=== PATIENT | female | born 1960 | race Caucasian/White ===

== ENCOUNTER 2017-04-17 08:26 | Outpatient (CLI) | payer OTHER ==
[2017-04-17 09:11] LABS: BILIRUBIN,URINE NEGATIVE (NEGATIVE)
[2017-04-17 09:12] LABS: BASOPHILS # (AUTO) 0.1 10^3/uL (0.0-0.1); BASOPHILS % (AUTO) 1.1 %; EOSINOPHILS # (AUTO) 0.1 10^3/uL (0.0-0.7); EOSINOPHILS % (AUTO) 2.3 %; HCT - HEMATOCRIT 42.7 % (37.0-47.0); LYMPHOCYTES # (AUTO) 1.8 10^3/uL (1.5-3.5); LYMPHOCYTES % (AUTO) 29.4 %; MEAN CORPUSCULAR HEMOGLOBIN 27.3 pg (27.0-31.0); MEAN CORPUSCULAR HGB CONC 32.9 g/dL (32.0-36.0); MEAN CORPUSCULAR VOLUME 82.9 fL (81.0-99.0); MEAN PLATELET VOLUME 9.1 fL (7.9-10.8); MONOCYTES # (AUTO) 0.4 10^3/uL (0.0-1.0); MONOCYTES % (AUTO) 6.7 %; NEUTROPHILS # (AUTO) 3.6 10^3/uL (1.5-6.6); NEUTROPHILS % (AUTO) 60.5 %; NUCLEATED RED BLOOD CELLS AUTO 0.1 /100WBC; RED BLOOD COUNT 5.15 10^6/uL (4.20-5.40); RED CELL DISTRIBUTION WIDTH 13.5 % (12.0-15.0)
[2017-04-17 09:18] LABS: UA w/ MICROSCOPIC CHARGE YES
[2017-04-17 09:24] LABS: UR CULTURE IF IND INDICATED
[2017-04-17 09:45] LABS: HEMOGLOBIN A1C 1.89 g/dL
[2017-04-17 10:09] LABS: ALBUMIN/GLOBULIN RATIO 1.3 (1.0-2.2); BILIRUBIN,TOTAL 0.9 mg/dL (0.2-1.0); BUN - BLOOD UREA NITROGEN 16 mg/dL (6-20); CARBON DIOXIDE - CO2 27 mmol/L (21-32); CHLORIDE 98 mmol/L (101-111); CHOL/HDL RATIO 7.3 (<4.4); CHOLESTEROL 235 mg/dL; CREATININE 0.8 mg/dL (0.4-1.0); GFR - MDRD 74 (>89); GLUCOSE 276 mg/dL (70-100); HDL CHOLESTEROL 32 mg/dL; POTASSIUM 3.9 mmol/L (3.5-5.0); SODIUM 134 mmol/L (135-145); TOTAL PROTEIN 7.1 g/dL (6.7-8.2); TRIGLYCERIDES 406 mg/dL
[2017-04-17 10:56] LABS: LDL CHOLESTEROL,DIRECT 128 mg/dL
== END 2017-04-17 08:27 | disposition home or self-care (01) ==
LOC: LAB 08:26
PROVIDERS: ATTEND Internal Medicine
DX: Z00.00 Encounter for general adult medical examination without abnormal findings (principal); E11.9 Type 2 diabetes mellitus without complications; E03.9 Hypothyroidism, unspecified; J30.2 Other seasonal allergic rhinitis; Z79.899 Other long term (current) drug therapy
CPT/HCPCS: 36415; 80053; 80061; 81001; 81003; 82043; 82570; 83036; 84443; 85025; 87086

== ENCOUNTER 2017-04-17 12:55 | Outpatient (CLI) | payer OTHER ==
--- NOTE | 2017-04-18 18:03 | Mammography Report ---
DIGITAL BILATERAL SCREENING MAMMOGRAM: 04/17/2017 COMPARISON STUDY: Mammogram 04/13/2016. TECHNIQUE: Routine CC and MLO projections were obtained of the breasts. FINDINGS: Scattered fibroglandular tissue is present within the breasts. There are no dominant mass es, suspicious microcalcifications, or secondary signs of malignancy. In comparison to the previous studies, there are no significant changes. ASSESSMENT: NO MAMMOGRAPHIC EVIDENCE OF MALIGNANCY. NO SIGNIFICANT INTERVAL CHANGES. RECOMMENDATION: Screening mammography is recommended annually. BIRADS category 1 - negative. STANDARD QUALIFYING STATEMENTS 1. This examination was reviewed with the aid of Computed-Aided Detection (CAD). 2. A negative or benign imaging report should not delay biopsy if clinically suspicious findings are present. Consider surgical consultation if warranted. More than 5% of cancers are not identified b y imaging. 3. Dense breasts may obscure an underlying neoplasm. JOB #: [id number] EXT JOB #:[id number]
== END 2017-04-17 12:56 | disposition home or self-care (01) ==
LOC: DI 12:55
PROVIDERS: ATTEND Internal Medicine
DX: Z12.31 Encounter for screening mammogram for malignant neoplasm of breast (principal)
CPT/HCPCS: 77067

== ENCOUNTER 2019-07-02 07:17 | Outpatient (CLI) | payer OTHER ==
--- NOTE | 2019-07-02 15:55 | Ultrasound Report ---
Reason: ELEVATED LFT'S Procedure Date: 07/02/2019 Accession Number: [id number] / [id number] Procedure: US - Abdomen Limited CPT Code: Final Report FULL RESULT: EXAM: ABDOMEN ULTRASOUND LIMITED, RUQ EXAM DATE: 07/02/2019 08:15 AM. CLINICAL HISTORY: ELEVATED LFTS. COMPARISON: None. TECHNIQUE: Real-time scanning was performed with static images obtained. FINDINGS: Liver: Dense echogenic hepatic parenchyma. The entire posterior right lobe of the liver is not optimally detailed. No intrahepatic ductal dilatation. The liver is not enlarged, 15.2 cm. Main portal vein flow: Hepatopetal. Gallbladder: Normal. No stones, wall thickening, or sonographic Johnson's sign. Biliary System: CBD measures 3-4 mm. No intrahepatic or extrahepatic ductal dilatation. Other: Right kidney is in contour and echotexture measures 10.8 cm. Mid right renal 2.4 x 1.7 x 2 cm cyst. No hydronephrosis. IMPRESSION: 1. Hepatic steatosis. No hepatic lesions. 2. Normal gallbladder. No biliary ductal dilatation. 3. Right renal 2.4 cm cyst. [facility]
== END 2019-07-02 07:18 | disposition home or self-care (01) ==
LOC: DI 07:17
PROVIDERS: ATTEND Internal Medicine
DX: K76.0 Fatty (change of) liver, not elsewhere classified (principal); Q61.01 Congenital single renal cyst
CPT/HCPCS: 76705

== ENCOUNTER 2019-07-02 07:18 | Outpatient (CLI) | payer OTHER ==
--- NOTE | 2019-07-02 13:29 | Mammography Report ---
Reason: ROUTINE MAMMO Procedure Date: 07/02/2019 Accession Number: [id number] / [id number] Procedure: [facility] - Screening Mammo w/Dequan CPT Code: Final Report FULL RESULT: EXAM: Screening Mammo w/Dequan DATE: 07/02/2019 8:33 AM CLINICAL HISTORY: The patient is an asymptomatic 59-year-old female. Nulliparous. Family history (mother) breast cancer. TECHNIQUE: (B) - Bilateral CC and MLO views were obtained. COMPARISON: 04/17/2017, 04/13/2016, 04/06/2015 and 04/14/2013 PARENCHYMAL PATTERN: (A) - The breasts demonstrate scattered fibroglandular densities bilaterally. FINDINGS: There are no suspicious masses, calcifications, or areas of distortion. IMPRESSION: Negative examination. BI-RADS category 1. RECOMMENDATION: (ANNUAL) - Recommend routine annual screening mammography. BI-RADS CATEGORY: (1) - Negative. STANDARD QUALIFYING STATEMENTS: A negative or benign imaging report should not preclude biopsy if clinically suspicious findings are present. Dense breasts may obscure an underlying neoplasm. This examination was reviewed with the aid of 3D breast imaging (tomosynthesis).
== END 2019-07-02 07:19 | disposition home or self-care (01) ==
LOC: DI 07:18
PROVIDERS: ATTEND Internal Medicine
DX: Z12.31 Encounter for screening mammogram for malignant neoplasm of breast (principal); Z80.3 Family history of malignant neoplasm of breast
CPT/HCPCS: 77063; 77067